=== PATIENT | female | born 1965 | race Caucasian/White ===

== ENCOUNTER → 2016-05-20 | Outpatient (CLI) | payer BC ==
--- NOTE | 2016-05-21 09:04 | MM ---
Reason for exam: clinical finding. Last mammogram was performed 1 year ago. History: Patient is postmenopausal. Family history of breast cancer in sister at age 50 and breast cancer in maternal aunt. Reductions of both breasts, 2006. Benign excisional biopsy of the left breast, 1997. Benign excisional biopsy of the left breast, 1994. Took estrogen for 16 years beginning at age 28. Indicated problem(s): pain in the left breast. Physical Findings: Nurse did not find any significant physical abnormalities on exam. MG Diagnostic Mammo w CAD MICHELLE Bilateral CC and MLO view(s) were taken. Prior study comparison: May 07, 2015, bilateral MG screening mammo w CAD. May 07, 2014, bilateral MG screening mammo w CAD. May 07, 2013, bilateral digital screening mammo w/CAD. There are scattered fibroglandular densities. Post mammoplasty changes redemonstrated. No significant new findings when compared with previous films. These results were verbally communicated with the patient and result sheet given to the patient on 05/20/16. ASSESSMENT: Negative, BI-RAD 1 RECOMMENDATION: Routine screening mammogram of both breasts in 1 year. Manage patient on a clinical basis with regard to left breast pain.
== END | disposition home or self-care (01) ==
LOC: RADMAMWWP 14:43
PROVIDERS: ATTEND Obstetrics & Gynecology
DX: N64.4 Mastodynia (principal); M89.9 Disorder of bone, unspecified

== ENCOUNTER 2016-06-05 11:23 | Emergency (ER) | payer BC ==
--- NOTE | 2016-06-05 12:04 | XR ---
EXAMINATION TYPE: XR chest 2V DATE OF EXAM: 06/05/2016 11:59 AM COMPARISON: NONE HISTORY: Cough FINDINGS: The lungs are clear and there is no pneumothorax, pleural effusion, or focal pneumonia. Hypertrophi c change of the spine. IMPRESSION: 1. No acute process.
--- NOTE | 2016-06-05 12:21 | ED ---
URI HPI - General Chief Complaint: Upper Respiratory Infection Stated Complaint: congestion Time Seen by Provider: 06/05/16 11:41 Source: patient, RN notes reviewed Mode of arrival: ambulatory Limitations: no limitations - History of Present Illness Initial Comments: 51-year-old female presented emergency department for cough and cold-like symptoms since Tuesday. She has had 4 days of symptoms and saw on in which she was given an antibiotic diagnosed with acute bronchitis. She states she's been taken Augmentin and has taken 2 days worth of doses with no relief. She states that she should be feeling better by now after 2 days. Patient states that she had acute bronchitis any Rx would take care of this. Patient has an ALLERGY to sulfa. Patient denies fever, chills. She states she has sinus congestion, sinus pressure. Patient states she's having a headache but has not tried any [id number] medications including decongestants, Tylenol or Motrin. - Related Data Home Medications Medication Instructions Recorded Confirmed Amoxic-Pot Clav 875-125Mg 1 tab PO Q12HR 06/05/16 06/05/16 [Augmentin 875-125] Benzonatate [Tessalon Perles] 200 mg PO DAILY 06/05/16 06/05/16 Previous Rx's Medication Instructions Recorded methylPREDNISolone [Medrol Dose 4 mg PO DIRECTED #1 pack 06/05/16 Pack] Allergies Allergy/AdvReac Type Severity Reaction Status Date / Time Sulfa (Sulfonamide Allergy Rash/Hives Verified 06/05/16 12:07 Antibiotics) Review of Systems ROS Statement: Those systems with pertinent positive or pertinent negative responses have been documented in the HPI. ROS Other: All systems not noted in ROS Statement are negative. Past Medical History Past Medical History: No Reported History History of Any Multi-Drug Resistant Organisms: None Reported Past Surgical History: Section, Cholecystectomy, Hysterectomy Past Psychological History: No Psychological Hx Reported Smoking Status: Never smoker Past Alcohol Use History: None Reported Past Drug Use History: None Reported General Exam Limitations: no limitations General appearance: alert, in no apparent distress Head exam: Present: atraumatic, normocephalic, normal inspection Eye exam: Present: normal appearance, PERRL, EOMI. Absent: scleral icterus, conjunctival injection, periorbital swelling ENT exam: Present: normal exam, normal oropharynx, mucous membranes moist, TM's normal bilaterally, normal external ear exam Neck exam: Present: normal inspection, full ROM. Absent: tenderness, meningismus, lymphadenopathy Respiratory exam: Present: normal lung sounds bilaterally. Absent: respiratory distress, wheezes, rales, rhonchi, stridor Cardiovascular Exam: Present: regular rate, normal rhythm, normal heart sounds. Absent: systolic murmur, diastolic murmur, rubs, gallop, clicks Neurological exam: Present: alert, oriented X3, CN II-XII intact Course Vital Signs 06/05/16 11:35 Temperature 99.5 F Pulse Rate 96 Respiratory 18 Rate Blood Pressure 136/72 O2 Sat by Pulse 95 Oximetry Medical Decision Making - Medical Decision Making 51-year-old female presented emergency department course symptoms. Patient is diagnosed with acute bronchitis prior. Patient's chest x-ray shows no acute abnormality. Patient has primary sinus congestion. Patient states she's been having ongoing wheezing though is not evident today. Patient was given a steroid for this. Return parameters were discussed. I had a lengthy discussion with the patient regarding her cold that this is a virus and not a bacterial infection. Disposition Clinical Impression: Upper respiratory infection, Viral infection Disposition: HOME SELF-CARE Condition: Undetermined Instructions: Upper Respiratory Infection (ED) Additional Instructions: Please return to the Emergency Department if symptoms worsen or any other concerns. Prescriptions: methylPREDNISolone [Medrol Dose Pack] 4 mg PO DIRECTED #1 pack Time of Disposition: 12:20
[2016-06-05 12:22] VITALS: BP 126/67; PULSE 84; RESP 16; TEMP 97.5
== END 2016-06-05 12:39 | disposition home or self-care (01) ==
LOC: EC 11:23
DX: J06.9 Acute upper respiratory infection, unspecified (principal); B34.9 Viral infection, unspecified; Z87.09 Personal history of other diseases of the respiratory system; Z88.2 Allergy status to sulfonamides
CPT/HCPCS: 71020; 99283

== ENCOUNTER 2016-08-04 07:09 | Day surgery (SDC) | payer BC ==
[2016-08-02 16:00] VITALS: BMI 30.5
[~2016-08-04 07:09] MED LIST: LACTATED RINGERS 1,000 ML IV SCH
[2016-08-04 07:31] VITALS: TEMP 96.9
[2016-08-04] MEDS ORDERED: LIDOCAINE 1% 20 ML VIAL (10MG/ML) FOR IV START INTRADERMA ONE (07:37)
[2016-08-04] MEDS ORDERED: LIDOCAINE 1% INJ 10MG/ML (20 ML MDV) ONE (08:06)
[2016-08-04] MEDS ORDERED: PROPOFOL 10 MG/ML 20 ML VIAL IV ONE (08:06)
--- NOTE | 2016-08-04 08:23 | P.PCN ---
Date of Procedure: 08/04/16 Procedure(s) Performed: BRIEF HISTORY: Patient is a 51-year-old pleasant white female, scheduled for an elective colonoscopy as a part of screening for colorectal neoplasia. PROCEDURE PERFORMED: Colonoscopy. PREOPERATIVE DIAGNOSIS: Screening for colon cancer. IV sedation per Anesthesia. PROCEDURE: After informed consent was obtained, the patient, was brought into the endoscopy unit. IV sedation was administered by Anesthesia under continuous monitoring. Digital rectal examination was normal. Initially the Olympus CF- 160 flexible video colonoscope was then inserted in the rectum, gradually advanced into the cecum without any difficulty. Careful examination was performed as the scope was gradually being withdrawn. Ileocecal valve and the appendiceal orifice were visualized and appeared normal. Prep was excellent. Mucosa of the cecum, ascending colon, transverse colon, descending colon, sigmoid colon, and rectum appeared normal. Retroflexion was performed in the rectum and small internal hemorrhoids were seen. The patient tolerated the procedure well. IMPRESSION: Normal-appearing colon from rectum to cecum with no evidence of colorectal neoplasia. Small internal hemorrhoids. RECOMMENDATIONS: Findings of this examination were discussed with the patient as well as a family. She was advised to have a repeat screening colonoscopy in 10 years..
[2016-08-04 08:32] VITALS: RESP 18
[2016-08-04 09:14] VITALS: BP 125/62; PULSE 66
== END 2016-08-04 09:25 | disposition home or self-care (01) ==
LOC: ORWHC2ENDO 07:09
PROVIDERS: ATTEND Internal Medicine Gastroenterology
DX: Z12.11 Encounter for screening for malignant neoplasm of colon (principal); K64.8 Other hemorrhoids; Z88.2 Allergy status to sulfonamides
CPT/HCPCS: J2001; J2704; G0121

== ENCOUNTER → 2017-12-06 | Outpatient (CLI) | payer BC ==
--- NOTE | 2017-12-07 13:28 | MM ---
Reason for exam: additional evaluation requested from prior study. Last mammogram was performed 1 year and 7 months ago. History: Patient is postmenopausal. Family history of breast cancer in sister at age 50 and breast cancer in maternal aunt. Reductions of both breasts, 2006. Benign excisional biopsy of the left breast, 1997. Benign excisional biopsy of the left breast, 1994. Took estrogen for 16 years beginning at age 28. Physical Findings: Nurse did not find any significant physical abnormalities on exam. MG Diagnostic Mammo w CAD MICHELLE Bilateral CC and MLO view(s) were taken. Prior study comparison: May 20, 2016, bilateral MG diagnostic mammo w CAD MICHELLE. May 07, 2015, bilateral MG screening mammo w CAD. There are scattered fibroglandular densities. Post mammoplasty changes. No significant new findings when compared with previous films. These results were verbally communicated with the patient and result sheet given to the patient on 12/06/17. ASSESSMENT: Negative, BI-RAD 1 RECOMMENDATION: Routine screening mammogram of both breasts in 1 year.
== END | disposition home or self-care (01) ==
LOC: RADMAMWWP 10:55
PROVIDERS: ATTEND Obstetrics & Gynecology
DX: N64.4 Mastodynia (principal)
CPT/HCPCS: 77066

== ENCOUNTER → 2018-03-28 | Outpatient (CLI) | payer BC | LOC: LABWHC1 12:20 | PROVIDERS: ATTEND Otolaryngology | DX: J30.89 Other allergic rhinitis (principal) | CPT/HCPCS: 36415; 86001 ==

== ENCOUNTER → 2020-03-11 | Outpatient (CLI) | payer BC ==
[2020-03-12 11:35] LABS: Cow's Milk IgE Class CLASS 0; Egg White IgE <0.10 kU/L (<0.10); Peanut IgE <0.10 kU/L (<0.10); Potato IgE <0.10 kU/L (<0.10); Potato IgE Class CLASS 0; Soybean IgE <0.10 kU/L (<0.10)
== END | disposition home or self-care (01) ==
LOC: LABWHC1 09:39
PROVIDERS: ATTEND Otolaryngology
DX: J30.89 Other allergic rhinitis (principal)
CPT/HCPCS: 36415; 86001; 86003

== ENCOUNTER 2022-01-12 08:39 | Day surgery (SDC) | payer BC ==
[2022-01-08 10:08] VITALS: BMI 34.4
[~2022-01-12 08:39] MED LIST changes: +LIDOCAINE 1% (10MG/ML) FOR IV START INTRADERMA PRN
[2022-01-12] MEDS ORDERED: PROPOFOL 10 MG/ML 20 ML VIAL IV ONE (10:54)
--- NOTE | 2022-01-12 11:00 | P.GSHP ---
History of Present Illness H&P Date: 01/12/22 Chief Complaint: Rectal bleeding 56-year-old female was last seen in the office in February of last year. Since that time the patient has had frequent episodes of rectal bleeding. 5-7 times per month. She is no longer taking her fiber supplementation. Last colonoscopy 5-6 years ago. No family history of colon cancer Past Medical History Past Medical History: No Reported History Additional Past Medical History / Comment(s): having intermittent bloody stools for the last year and 1/2,hx internal hemorrhoids History of Any Multi-Drug Resistant Organisms: None Reported Past Surgical History: Section, Cholecystectomy, Hysterectomy Past Anesthesia/Blood Transfusion Reactions: No Reported Reaction Additional Past Anesthesia/Blood Transfusion Reaction / Comment(s): no hx blood transfusion Smoking Status: Never smoker - Past Family History Sister(s) Family Medical History: Cancer Additional Family Medical History / Comment(s): breast CA,. maternal aunt breast CA Medications and Allergies Home Medications Medication Instructions Recorded Confirmed Type No Known Home Medications 08/02/16 01/08/22 History Allergies Allergy/AdvReac Type Severity Reaction Status Date / Time Sulfa (Sulfonamide Allergy Rash/Hives Verified 01/12/22 09:45 Antibiotics) Surgical - Exam Vital Signs Pulse Resp BP Pulse Ox 64 20 138/72 96 01/12/22 09:48 01/12/22 09:48 01/12/22 09:48 01/12/22 09:48 Physical exam: General: Well-developed, well-nourished HEENT: Normocephalic, sclerae nonicteric Abdomen: Nontender, nondistended Extremities: No edema Neuro: Alert and oriented Assessment and Plan (1) Rectal bleeding Narrative/Plan: Will proceed with colonoscopy with possible hemorrhoidal banding at this time. Risks of bleeding and infection reviewed. She understands and wishes to proceed. Current Visit: Yes Status: Acute Code(s): K62.5 - HEMORRHAGE OF ANUS AND RECTUM SNOMED Code(s): 86270604
--- NOTE | 2022-01-12 11:27 | P.PCN ---
Date of Procedure: 01/12/22 Procedure(s) Performed: PREOPERATIVE DIAGNOSIS: Rectal bleeding POSTOPERATIVE DIAGNOSIS: Colon polyps, internal hemorrhoids PROCEDURE: Colonoscopy with snare polypectomy and internal hemorrhoids ANESTHESIA: MAC SURGEON: Pedro Larsen M.D. SPECIMENS: Polyps ENDOSCOPIC PROCEDURE: The patient was placed on the endoscopy table in the left decubitus position. The Olympus colonoscope was inserted into the anus and passed under direct visualization to the base of the cecum. The appendiceal orifice was visualized. From that point the scope was slowly withdrawn inspecting all surfaces carefully. There were no neoplastic inflammatory or polypoid lesions throughout the cecum, ascending, transverse, or descending colon. In the sigmoid colon a small polyp was seen and removed using the snare with cautery technique. In the rectum a slightly larger polyp was seen and also removed using the snare with cautery technique. No diverticulosis was seen. Retroflexion at the anus revealed internal hemorrhoids. He was one area that appeared to be suspicious for recent bleeding. The anoscope was utilized. This was present in the right posterior position. The suction hemorrhoidal banding instrument was utilized and a single band was deployed in the right posterior location. No other hemorrhoids were seen that appeared suspicious for recent bleeding. The patient was taken to the recovery room in stable condition per anesthesia guidelines. RECOMMENDATIONS: Resume diet. Await biopsy results. Patient may require further hemorrhoidal banding. Tentatively plan follow-up colonoscopy 5 years.
[2022-01-12 11:33] VITALS: RESP 16
[2022-01-12 11:45] VITALS: BP 133/84; PULSE 64
== END 2022-01-12 12:03 | disposition home or self-care (01) ==
LOC: ORWHC2ENDO 08:39
PROVIDERS: ATTEND Surgery
DX: D12.5 Benign neoplasm of sigmoid colon (principal); D12.8 Benign neoplasm of rectum; K62.5 Hemorrhage of anus and rectum; Z88.2 Allergy status to sulfonamides; K64.8 Other hemorrhoids
CPT/HCPCS: 45385; 46221; 88305; J2704; 46600

== ENCOUNTER → 2023-05-24 | Outpatient (CLI) | payer BC ==
--- NOTE | 2023-05-25 18:26 | BD ---
EXAMINATION TYPE: Axial Bone Density DATE OF EXAM: 05/24/2023 CLINICAL HISTORY: 58 years old Female. ICD-10 CODE: M85.88 OSTEOPENIA Height: 64.5 Weight: 215.5 FRAX RISK QUESTIONS: Alcohol (3 or more units per day): no Family History (Parent hip fracture): no Glucocorticoids (More than 3mos): no History of Fracture in Adulthood: no Secondary Osteoporosis: 1. Type 1 Diabetes: no 2. Hyperthyroidism: no 3. Menopause before 45: yes 4. Malnutrition: no 5. Chronic liver disease: no Rheumatoid Arthritis: no Current Tobacco Use: no RISK FACTORS HISTORY OF: Hip Fracture (Right/Left): no Spine Fracture: no History of Wrist Fracture: no Surgery to Spine/Hip(right/left)/Wrist (right/left): no Family History of Osteoporosis: no Active: yes Diet low in dairy products/other sources of calcium: no Postmenopausal woman: yes Take estrogen and/or progesterone medications: yes How long: past week Lost more than 2 inches in height since high school: yes Frequent falls: no Poor Health: no Hyperparathyroidism: no Adrenal Insufficiency: no MEDICATIONS: Prednisone or other steroids: no Thyroid Medications: no Osteoporosis Medications: no Additional Medications: Vit D, Magnesium, Additional History: EXAM MEASUREMENTS: Bone mineral densitometry was performed using the [employer] System. Bone mineral density as measured about the Lumbar spine is: ----- L1-L4(G/cm2): 1.223 T Score Values are as follows: ----- L1: -0.4 ----- L2: 0.7 ----- L3: 0.4 ----- L4: 0.5 ----- L1-L4: 0.4 Z Score Values are as follows: ----- L1: -0.3 ----- L2: 0.8 ----- L3: 0.5 ----- L4: 0.6 ----- L1-L4: 0.5 Baseline Study Bone mineral density about the R hip (g/cm2): 0.859 Bone mineral density about the L hip (g/cm2): 0.908 T Score values are as follows: -----R Neck: -1.8 -----L Neck: -1.7 -----R Total: -1.2 -----L Total: -0.8 Z Score values are as follows: -----R Neck: -1.2 -----L Neck: -1.1 -----R Total: -1.0 -----L Total: -0.7 Baseline Study FRAX%s: The graph provided illustrates a 8.1% chance for a major osteoporotic fx and a 0.8% chance fo r the hips probability for fx in 10 years time. IMPRESSION: Osteopenia (T Score between -2.5 and -1). There is slightly increased risk of fracture and the patient may be considered for treatment. Re-Screen 2-5 years. NOTE: T-SCORE=SD OF THE YOUNG ADULT MEAN.
== END | disposition home or self-care (01) ==
LOC: RADBDWWP 14:47
PROVIDERS: ATTEND Obstetrics & Gynecology
DX: M85.89 Other specified disorders of bone density and structure, multiple sites (principal); Z78.0 Asymptomatic menopausal state
CPT/HCPCS: 77080

== ENCOUNTER → 2023-05-24 | Outpatient (CLI) | payer BC ==
--- NOTE | 2023-05-24 10:06 | MM ---
Reason for Exam: Clinical finding. Last mammogram was performed 5 year(s) and 6 month(s) ago. Indicated Problems: Pain of the left side (Global) for 3 Week(s). Patient History: Menarche at age 9. First Full-Term at age 21. Left ovary removed at age 28. Right ovary removed at age 28. Hysterectomy at age 28. Postmenopausal. Patient has history of breast feeding. Estrogen for 16 years from age 28 until age 47. 1997, Benign Excisional Biopsy on the left side. 2006, Bilateral Reduction. 1994, Benign Excisional Biopsy on the left side. Maternal aunt had breast cancer. Sister had breast cancer, age 50. Risk Values: An 5 year model risk: 4.5%. NCI Lifetime model risk: 21.3%. Prior Study Comparison: 05/07/2015 Bilateral Screening Mammogram, [facility]. 05/20/2016 Bilateral Diagnostic Mammogram, [facility]. 12/06/2017 Bilateral Diagnostic Mammogram, [facility]. Tissue Density: The breast tissue is almost entirely fat. Findings: Analyzed By CAD. There is no suspicious group of microcalcifications or new suspicious mass. No new suspicious masses, calcifications or distortions. Overall Assessment: Negative, BI-RAD 1 Management: Screening Mammogram of both breasts in 1 year. Clinical clinical management for patient's pain. Results were given to the patient verbally at the time of exam. Patient should continue monthly self-breast exams. A clinical breast exam by your physician is recommended on an annual basis. This exam should not preclude additional follow-up of suspicious palpable abnormalities. Note on An scores and lifetime risk: 1. A Na score greater than 3% is considered moderate risk. If this is the case, consider specialist referral to assess eligibility for a risk reducing agent. 2. If overall lifetime risk for the development of breast cancer is 20% or higher, the patient may qualify for future screening with alternating mammogram and breast MRI. Electronically signed and approved by: Malik Martin DO
== END | disposition home or self-care (01) ==
LOC: RADMAMWWP 09:12
PROVIDERS: ATTEND Obstetrics & Gynecology
DX: N64.4 Mastodynia (principal); R92.313 Mammographic fatty tissue density, bilateral breasts; Z80.3 Family history of malignant neoplasm of breast; Z78.0 Asymptomatic menopausal state
CPT/HCPCS: 77062; 77066